=== PATIENT | male | born 1950 | race Caucasian/White ===

== ENCOUNTER 2018-07-19 08:59 | Outpatient (CLI) | payer MEDICARE | END 2018-07-19 23:59 | disposition home or self-care (01) | LOC: ROC 08:59 | PROVIDERS: ATTEND Radiology Radiation Oncology | DX: C61 Malignant neoplasm of prostate (principal) | CPT/HCPCS: G0463 ==

== ENCOUNTER 2018-07-25 07:19 | Outpatient (CLI) | payer MEDICARE ==
[2018-07-25] MEDS ORDERED: LIDOCAINE/PF 1%, 30ML ONE (08:00)
== END 2018-07-25 23:59 | disposition home or self-care (01) ==
LOC: ROC 07:19
PROVIDERS: ATTEND Radiology Radiation Oncology
DX: C61 Malignant neoplasm of prostate (principal)
CPT/HCPCS: 55876; 76942; 77332; A4648; J3490

== ENCOUNTER 2018-07-31 13:58 | Outpatient (CLI) | payer MEDICARE | END 2018-07-31 23:59 | disposition home or self-care (01) | LOC: CFH 13:58 | PROVIDERS: ATTEND Radiology Radiation Oncology | DX: C61 Malignant neoplasm of prostate (principal) | CPT/HCPCS: 72195 ==

== ENCOUNTER 2019-09-03 08:05 | Outpatient (CLI) | payer MEDICARE | END 2019-09-03 23:59 | disposition home or self-care (01) | LOC: ROC 08:05 | PROVIDERS: ATTEND Radiology Radiation Oncology | DX: C61 Malignant neoplasm of prostate (principal) | CPT/HCPCS: G0463 ==